=== PATIENT | female | born 1955 | race Caucasian/White ===

== ENCOUNTER 2016-09-14 14:55 | Emergency (ER) | payer OTHER ==
[~2016-09-14] VITALS: Ht 170.2 cm; Wt 60.0 kg
[~2016-09-14 14:55] MED LIST: GABA100C14 PO; GABA300C16 PO; LEVE-5 PO; MULTI PO
[2016-09-14 14:59] VITALS: Ht 170.2 cm; Wt 60.0 kg
[2016-09-14] MEDS ORDERED: KETOROLAC 15 MG INJ IM STA (19:25)
[2016-09-14] MEDS ORDERED: IBUP800T25 PO (19:26)
--- NOTE | 2016-09-14 19:29 | ERD ---
ER Documentation Chief Complaint Date/Time DATE: 09/14/16 TIME: 19:27 Chief Complaint LEFT HIP PAIN S/P FALL 3 DAYS AGO. HPI 61-year-old female who presents to the emergency room with neck pain, bilateral hip pain status post moving furniture 3 days ago. At triage it was reported to follow-up with the patient denies a fall. She describes chronic neck pain and hip pain. She states that she was lifting some heavy mattresses. She states that she is homeless. 3 days ago she felt a strain to her neck and her hips. She has been walking during this timeframe using some mild assistance. She states in the past narcotics of help for her pain. She denies any fevers or chills. No head trauma or loss of consciousness. ROS All systems reviewed and are negative except as per history of present illness. Medications Home Meds Active Scripts Ibuprofen* (Motrin*) 800 Mg Tab, 800 MG PO Q6H Y for PAIN AND OR ELEVATED TEMP, #30 TAB Prov:SLAVA MARTÍNEZ MD 09/14/16 Multivitamins* (Theragran*) 1 Tab Tab, 1 TAB PO DAILY for 30 Days, TAB Prov:MOO MCKEON 05/22/16 Levetiracetam* (Keppra*) 500 Mg Tablet, 500 MG PO BID for 30 Days, TAB Prov:MOO MCKEON 05/22/16 Gabapentin* (Gabapentin*) 100 Mg Capsule, 200 MG PO TID for 30 Days, CAP Prov:MOO MCKEON 05/22/16 Reported Medications Gabapentin* (Gabapentin*) 300 Mg Capsule, 600 MG PO TID, #180 CAP 02/05/16 Allergies Allergies: Coded Allergies: No Known Allergies (Verified Allergy, Unknown, 05/19/16) pseudoephedrine (Verified Adverse Reaction, Unknown, tachycardia--SIDE EFFECT ONLY, 05/19/16) PMhx/Soc Anesthesia Reaction: No Hx Neurological Disorder: No Hx Respiratory Disorders: Yes (bronchitis) Hx Cardiac Disorders: Yes (intermittent high bp) Hx Psychiatric Problems: No Hx Miscellaneous Medical Probl: No Hx Alcohol Use: Yes Hx Substance Use: Yes Hx Tobacco Use: Yes FmHx Family History: No diabetes Physical Exam Vitals Vital Signs Date Time Temp Pulse Resp B/P Pulse Ox O2 Delivery O2 Flow Rate FiO2 09/14/16 14:59 98.6 101 19 109/61 97 Physical Exam Airway is intact Bilateral breath sounds Strong distal pulses No obvious deficits General: Well developed, well nourished, no acute distress Head: Normocephalic, atraumatic Eyes: Pupils equally reactive, EOM intact ENT: Moist mucous membranes Neck: Supple, no lymphadenopathy, No midline tenderness, deformities, step-offs to the cervical spine, full active and passive range of motion without midline pain. Respiratory: Lungs clear bilaterally, no distress, no chest wall tenderness, no crepitus Cardiovascular: RRR, no murmurs, rubs, or gallops Abdominal: Soft, non-tender, non-distended, no peritoneal signs, pelvis is stable : Deferred MSK: No edema, no unilateral swelling, 5/5 strength, no midline tenderness deformities or step-offs to the thoracolumbar spine, normal internal and external rotation of bilateral hips without focal tenderness Neurologic: Alert and oriented, moving all extremities, normal speech, no focal weakness, no cerebellar signs Skin: No ecchymoses or bruising to the chest or abdomen Psych: Normal mood Procedures/MDM The patient's clinical exam is reassuring. Her chronic pain is likely exacerbated by heavy lifting. The patient does not meet high-risk criteria and based on NEXUS cervical spine criteria there is no indication for cervical spine imaging at this time. The patient has no evidence of septic joint. She has full active and passive range of motion of bilateral hips. The patient has been taking frequent smoking breaks in triage and has been called multiple times. The patient is homeless. I do not suspect acute fracture. The patient states that she did not fall. I offered x-ray imaging but feel that the imaging is unlikely to show fracture. The patient agrees and would like to defer x-ray imaging. The patient was provided Toradol. I will not offer narcotics for this patient. A combination of electronic medical record review, [facility] database review and patient behavior in the emergency room are concerning for drug-seeking and/or narcotic dependence behavior. In my opinion further use of IV or IM narcotics in this patient is not warranted unless clinical scenario changes. In addition , we should use caution prescribing chronic narcotic and/or benzodiazepine medications from the emergency room. A single provider should be dispensing this type of medication. The patient was informed. The patient was given food, outpatient resources and I believe the patient is safe for discharge. The patient is requesting a cane which has been provided. We discussed follow up with the patient's primary care doctor within 24 to 48 hours as needed. We also discussed return to the emergency room for worsening symptoms or worsening condition. Outpatient referral: [None required] Discharge Medications: Motrin Departure Diagnosis: Primary Impression: Myalgia Condition: Stable Patient Instructions: Myalgias Referrals: [facility] YOU HAVE RECEIVED A MEDICAL SCREENING EXAM AND THE RESULTS INDICATE THAT YOU DO NOT HAVE A CONDITION THAT REQUIRES URGENT TREATMENT IN THE EMERGENCY DEPARTMENT. FURTHER EVALUATION AND TREATMENT OF YOUR CONDITION CAN WAIT UNTIL YOU ARE SEEN IN YOUR DOCTORS OFFICE WITHIN THE NEXT 1-2 DAYS. IT IS YOUR RESPONSIBILITY TO MAKE AN APPOINTMENT FOR FOLOW-UP CARE. IF YOU HAVE A PRIMARY DOCTOR --you should call your primary doctor and schedule an appointment IF YOU DO NOT HAVE A PRIMARY DOCTOR YOU CAN CALL OUR PHYSICIAN REFERRAL HOTLINE AT IF YOU CAN NOT AFFORD TO SEE A PHYSICIAN YOU CAN CHOSE FROM THE FOLLOWING [facility] [address] [facility]. [facility] [address] [facility] [address] [facility] [address] [facility]. [facility] [address] [facility]. [facility] [address] [facility]. [facility] YOU HAVE RECEIVED A MEDICAL SCREENING EXAM AND THE RESULTS INDICATE THAT YOU DO NOT HAVE A CONDITION THAT REQUIRES URGENT TREATMENT IN THE EMERGENCY DEPARTMENT. FURTHER EVALUATION AND TREATMENT OF YOUR CONDITION CAN WAIT UNTIL YOU ARE SEEN IN YOUR DOCTORS OFFICE WITHIN THE NEXT 1-2 DAYS. IT IS YOUR RESPONSIBILITY TO MAKE AN APPOINTMENT FOR FOLOW-UP CARE. IF YOU HAVE A PRIMARY DOCTOR --you should call your primary doctor and schedule and appointment IF YOU DO NOT HAVE A PRIMARY DOCTOR YOU CAN CALL OUR PHYSICIAN REFERRAL HOTLINE AT . IF YOU CAN NOT AFFORD TO SEE A PHYSICIAN YOU CAN CHOSE FROM THE FOLLOWING [facility] INSTITUTIONS: [facility] [address] [place] [address] [facility] [address] [place] [address] [facility] + [facility] [address] [place] [address] Additional Instructions: Call your primary care doctor TOMORROW for an appointment during the next 1 WEEK.Tell the secretary office clerk that you were referred from this facility.See the doctor sooner or return here if your condition worsens before your appointment time. SLAVA MARTÍNEZ MD Sep 14, 2016 19:29
[2016-09-14 20:19] VITALS: BP 114/72; PULSE 76; RESP 16; TEMP 98.3
== END 2016-09-14 20:20 | disposition home or self-care (01) ==
LOC: E/R 14:55
DX: S19.9XXA Unspecified injury of neck, initial encounter (principal); S79.911A Unspecified injury of right hip, initial encounter; S79.912A Unspecified injury of left hip, initial encounter; X50.0XXA Overexertion from strenuous movement or load, initial encounter; Y92.9 Unspecified place or not applicable; Z87.891 Personal history of nicotine dependence
CPT/HCPCS: 96372; J1885; Z7502

== ENCOUNTER 2016-11-18 12:37 | Emergency (ER) | payer OTHER ==
[~2016-11-18] VITALS: Ht 154.9 cm; Wt 60.0 kg
[~2016-11-18 12:37] MED LIST changes: +IBUP800T25 PO
[2016-11-18 12:47] VITALS: Ht 154.9 cm; Wt 60.0 kg
[2016-11-18] MEDS ORDERED: ACETAMINOPHEN 325 MG TAB PO ONE (13:30)
--- NOTE | 2016-11-18 13:32 | RADRPT ---
PROCEDURE: CT Brain without contrast. CLINICAL INDICATION: Fall; Neurologic deficit TECHNIQUE: A CT of the brain was performed on multidetector high-resolution CT scanner utilizing a xial sections from the skull base through the vertex without contrast. One or more of the following dose reduction techniques were used: Automated exposure control, Adjustment of the mA and/or kV acc ording to patient size, and/or use of iterative reconstruction technique. DOSE: CTDI = 43 mGy and the DLP = 630 mGy-cm. COMPARISON: Head CT 05/19/2016 FINDINGS: No acute intracranial hemorrhage, significant mass effect or midline shift. The felton-white different iation is grossly preserved. Vascular calcifications. The ventricles are stable size. Mild volume loss. No significant opacification of the visualized paranasal sinuses or mastoids. IMPRESSION: No significant change since 05/19/2016 No acute intracranial findings. Mild volume loss and intracranial atherosclerosis. RPTAT: AA .Jayson Gutierrez MD, MD Date Time Electronically viewed and signed by .Jayson Gutierrez MD, on 11/18/2016 13:31 .T/
--- NOTE | 2016-11-18 13:44 | RADRPT ---
PROCEDURE: CT Cervical Spine without contrast. CLINICAL INDICATION: Fall TECHNIQUE: A CT of the cervical spine was performed on a CT scanner utilizing thin section axial images from the skull base through the thoracic inlet. Sagittal and coronal reformatted images were made. The CTDIvol is 22.2. mGy and the DLP is 494.42 mGycm. Automated exposure control, adjustme nt of the mA and/or kV according to patient size, use of iterative reconstruction technique. COMPARISON: No prior studies are available for comparison. FINDINGS: There is a normal lordosis of the cervical spine. the vertebral bodies are normal in height, densi ty, and alignment. No fracture is evident. C2-3: Intervertebral disk calcification with preservation of disk height. Small central disk protru honey measuring 2 mm in AP dimension. Severe hypertrophic left facet joint arthropathy without jhony inal or central canal stenosis. C3-4: Intervertebral disk calcification with preservation of disk height. Subtle 1 mm anterolisthes is of C3 on C4 with minimal posterior disk bulging and 2 mm central disk protrusion moderate to frank re bilateral hypertrophic facet joint arthropathy without foraminal stenosis C4-5: Intervertebral disk calcification with preservation of disk height and circumferential disk bu lging with small central disk protrusion measuring 1-2 mm in AP dimension. 1-2 mm anterolisthesis o f C4 on C5. Severe hypertrophic left facet joint arthropathy with moderate to severe left foraminal stenosis without right foraminal or central canal stenosis. < C5-6: Mild loss of disk height with intervertebral disk calcification and circumferential disk bulgi ng. Posterior annular disk calcification. Moderate to severe hypertrophic facet joint arthropathy. No significant disk bulge or protrusion is evident. There is no central canal stenosis or foramin al narrowing. C6-7: Moderate disk space narrowing and 2-3 mm anterolisthesis of C6 on C7 uncovering of posterior disk with circumferential disk bulging. No focal disk protrusion. Moderate to severe hypertrophic facet joint arthropathy. There is no central canal stenosis or foraminal narrowing. C7-T1: Moderate disk space narrowing. No significant disk bulge or protrusion is evident. There is no central canal stenosis or foraminal narrowing. No pre and paravertebral soft tissue abnormality. The lung apices are clear. 2.6 cm partially calc ified right thyroid lobe cyst. Ultrasound correlation is recommended. IMPRESSION: 1. No fracture or paraspinal soft tissue abnormality. 2. Multilevel degenerative disk and spondylitic changes as detailed above. 3. 2.6 cm right partially calcified thyroid lobe cyst. Ultrasound correlation is recommended. RPTAT:AAJJ Yolis Meza Physician Date Time Electronically viewed and signed by Yolis Meza Physician on 11/18/2016 13:44 YANI/
[2016-11-18 15:50] VITALS: BP 122/70; PULSE 86; RESP 18; TEMP 98
--- NOTE | 2016-11-18 16:42 | ERD ---
ER Documentation Chief Complaint Date/Time DATE: 11/18/16 TIME: 16:40 Chief Complaint fell, has neck pain, etoh intoxicated HPI Patient is a 61-year-old female with alcohol abuse who presents with neck pain. Please note the history and physical exam is limited secondary to the patient' s alcohol intake today. She says that she has had neck pain for the past 5 days which started after moving furniture. She has had recent falls as well. She admits to drinking 3 beers today. She has had no treatment for the pain. Upon review of old medical records patient has multiple visits to the ER for various complaints. She does not know the name of her primary doctor. ROS All systems reviewed and are negative except as per history of present illness. Medications Home Meds Active Scripts Ibuprofen* (Motrin*) 800 Mg Tab, 800 MG PO Q6H Y for PAIN AND OR ELEVATED TEMP, #30 TAB Prov:SLAVA MARTÍNEZ MD 09/14/16 Multivitamins* (Theragran*) 1 Tab Tab, 1 TAB PO DAILY for 30 Days, TAB Prov:MOO MCKEON 05/22/16 Levetiracetam* (Keppra*) 500 Mg Tablet, 500 MG PO BID for 30 Days, TAB Prov:MOO MCKEON 05/22/16 Gabapentin* (Gabapentin*) 100 Mg Capsule, 200 MG PO TID for 30 Days, CAP Prov:MOO MCKEON 05/22/16 Reported Medications Gabapentin* (Gabapentin*) 300 Mg Capsule, 600 MG PO TID, #180 CAP 02/05/16 Allergies Allergies: Coded Allergies: No Known Allergies (Verified Allergy, Unknown, 05/19/16) pseudoephedrine (Verified Adverse Reaction, Unknown, tachycardia--SIDE EFFECT ONLY, 05/19/16) PMhx/Soc Anesthesia Reaction: No Hx Neurological Disorder: No Hx Respiratory Disorders: Yes (bronchitis) Hx Cardiac Disorders: Yes (intermittent high bp) Hx Psychiatric Problems: No Hx Miscellaneous Medical Probl: No Hx Alcohol Use: Yes Hx Substance Use: Yes Hx Tobacco Use: Yes Smoking Status: Current every day smoker FmHx Family History: diabetes Physical Exam Vitals Vital Signs Date Time Temp Pulse Resp B/P Pulse Ox O2 Delivery O2 Flow Rate FiO2 11/18/16 15:50 98.0 86 18 122/70 99 Room Air 11/18/16 12:47 98.3 90 18 114/66 99 Physical Exam Const: No acute distress Head: Atraumatic Eyes: Normal Conjunctiva ENT: Normal External Ears, Nose and Mouth. Neck: Pain over the strap muscles of the right neck Resp: Clear to auscultation bilaterally Cardio: Regular rate and rhythm, no murmurs Abd: Soft, non tender, non distended. Normal bowel sounds Skin: No petechiae or rashes Back: No midline or flank tenderness Ext: No cyanosis, or edema Neur: Awake but intoxicated Results 24 hrs Current Medications Medications (Trade) Dose Ordered Sig/Jenna Route PRN Reason Start Time Stop Time Status Last Admin Dose Admin Acetaminophen (Tylenol Tab) 650 mg ONCE ONCE PO 11/18/16 13:30 11/18/16 13:31 DC 11/18/16 13:40 Procedures/MDM CT scan of the head and neck are negative for fracture or bleeding per radiology. Patient is a 61-year-old female presents with neck pain. CT scan of the head and cervical spine are negative for fracture or dislocation. At this point I believe outpatient management is appropriate. The patient was given Tylenol for pain. She was instructed not to drink alcohol to excess in the future. She can return for any worsening symptoms. I believe this most likely musculoskeletal neck pain. Departure Diagnosis: Primary Impression: Alcohol intoxication Complication of substance-induced condition: uncomplicated Qualified Code: F10.120 - Alcohol intoxication, uncomplicated Additional Impression: Neck pain Condition: Fair Patient Instructions: Alcohol Intoxication, Neck Pain, No Trauma Additional Instructions: Call your primary care doctor TOMORROW for an appointment during the next 1-2 days.See the doctor sooner or return here if your condition worsens before your appointment time. ANIL MCKENZIE MD November 18, 2016 16:42
== END 2016-11-18 15:51 | disposition home or self-care (01) ==
LOC: E/R 12:37
DX: F10.120 Alcohol abuse with intoxication, uncomplicated (principal); M54.2 Cervicalgia; F17.210 Nicotine dependence, cigarettes, uncomplicated; R93.0 Abnormal findings on diagnostic imaging of skull and head, not elsewhere classified
CPT/HCPCS: 70450; 72125; Z7502; Z7610

== ENCOUNTER 2017-01-15 01:55 | Emergency (ER) | payer OTHER ==
[~2017-01-15] VITALS: Ht 170.2 cm; Wt 59.0 kg
[2017-01-15 02:01] VITALS: Ht 170.2 cm; Wt 59.0 kg
[2017-01-15] MEDS ORDERED: CYCLOBENZAPRINE 10 MG TAB PO ONE (02:30)
[2017-01-15] MEDS ORDERED: ACETAMINOPHEN 325 MG TAB PO ONE (02:30)
--- NOTE | 2017-01-15 02:37 | ERD ---
ER Documentation Chief Complaint Date/Time DATE: 01/15/17 TIME: 02:34 Chief Complaint s/p on sidewalk, no KO, left neck pain HPI 61 yo female states she was moving bottles into the recycling machine and when it turned it caused her to fall, causing her to twist, and is complaining of headache, neck pain and right thumb pain, this occurred around 5 PM yesterday. Patient describes a diffuse headache that is mild, achy. She denies any loss of consciousness or nausea vomiting. She also reports diffuse neck pain nonradiating. She also states that she has pain in the right base of thumb pain which she sprained at the same time today. Patient states that she does not take any blood thinners. She denies any other injuries at this time. ROS All systems reviewed and are negative except as per history of present illness. Medications Home Meds Active Scripts Ibuprofen* (Motrin*) 400 Mg Tab, 400 MG PO Q6, #30 TAB Prov:EVENS DICK PA-C 01/15/17 Ibuprofen* (Motrin*) 800 Mg Tab, 800 MG PO Q6H Y for PAIN AND OR ELEVATED TEMP, #30 TAB Prov:SLAVA MARTÍNEZ MD 09/14/16 Multivitamins* (Theragran*) 1 Tab Tab, 1 TAB PO DAILY for 30 Days, TAB Prov:MOO MCKEON 05/22/16 Levetiracetam* (Keppra*) 500 Mg Tablet, 500 MG PO BID for 30 Days, TAB Prov:MOO MCKEON 05/22/16 Gabapentin* (Gabapentin*) 100 Mg Capsule, 200 MG PO TID for 30 Days, CAP Prov:MOO MCKEON 05/22/16 Reported Medications Gabapentin* (Gabapentin*) 300 Mg Capsule, 600 MG PO TID, #180 CAP 02/05/16 Allergies Allergies: Coded Allergies: No Known Allergies (Verified Allergy, Unknown, 05/19/16) pseudoephedrine (Verified Adverse Reaction, Unknown, tachycardia--SIDE EFFECT ONLY, 05/19/16) PMhx/Soc Anesthesia Reaction: No Hx Neurological Disorder: No Hx Respiratory Disorders: Yes (bronchitis) Hx Cardiac Disorders: Yes (intermittent high bp) Hx Psychiatric Problems: No Hx Miscellaneous Medical Probl: No Hx Alcohol Use: Yes Hx Substance Use: Yes Hx Tobacco Use: Yes Smoking Status: Current every day smoker Physical Exam Vitals Vital Signs Date Time Temp Pulse Resp B/P Pulse Ox O2 Delivery O2 Flow Rate FiO2 01/15/17 02:01 97.1 73 18 137/83 100 Physical Exam General: Well-developed, well-nourished. The patient appears in no acute distress. HEENT: Head is normocephalic, atraumatic. No scleral icterus. Neck: Supple. Nontender. No midline tenderness or crepitus. Lungs: Clear to auscultation. Normal air movement. Heart: Regular rate and rhythm. S1 and S2 are normal. No murmurs, gallops, or rubs. Abdomen: Soft, nontender, nondistended. Bowel sounds are normoactive. Extremities: Tender at the base of the right thumb, she has full range of motion with flexion and extension. Neurologic: Alert and oriented 3. No focal deficits. Skin: Normal turgor. No rash or lesions. Results 24 hrs Current Medications Medications (Trade) Dose Ordered Sig/Jenna Route PRN Reason Start Time Stop Time Status Last Admin Dose Admin Acetaminophen (Tylenol Tab) 650 mg ONCE ONCE PO 01/15/17 02:30 01/15/17 02:31 DC 01/15/17 02:38 Cyclobenzaprine HCl (Flexeril) 10 mg ONCE ONCE PO 01/15/17 02:30 01/15/17 02:31 DC 01/15/17 02:38 DIAGNOSTIC IMAGING REPORT Patient: TALAT AMADOR : 1955 Age: 61 Sex: F MR #: [id number] DOS: 01/15/17 0227 Ordering MD: EVENS DICK PA-C Location: E Room/Bed: PROCEDURE: XR right thumb. CLINICAL INDICATION: . Trauma. Pain.. TECHNIQUE: Three views of the right thumb are available for review. COMPARISON: None available FINDINGS: The osseous structures, articular spaces, and surrounding soft tissues of the left thumb are normal. No acute fracture or dislocation is seen. No radiopaque foreign body is identified. IMPRESSION: 1. Unremarkable right thumb x-ray series. RPTAT: HMVK .Lion Mary MD, Date Time Electronically viewed and signed by .Lion Mary MD, on 01/15/2017 02:56 .K/ CC: EVENS DICK PA-C DIAGNOSTIC IMAGING REPORT Patient: TALAT AMADOR : 1955 Age: 61 Sex: F MR #: [id number] DOS: 01/15/17 0227 Ordering MD: EVENS DICK PA-C Location: [facility] Room/Bed: PROCEDURE: CT Cervical Spine without contrast. CLINICAL INDICATION: Injury and pain. TECHNIQUE: CT scan of the cervical spine was performed on a multi-detector high-resolution CT scanner. Contiguous axial images were obtained without intravenous contrast. Coronal and sagittal reformatted images were also obtained. Images were reviewed on the PACS workstation. One or more of the following dose reduction techniques were used: - Automated exposure control. - Adjustment of the mA and/or kV according to patient size. - Use of iterative reconstruction technique. Exam CTD/vol = 22.35 mGy. Total exam DLP = 600.44 mGy-cm. COMPARISON: 11/18/2016. FINDINGS: There is no acute fracture. Cervical vertebral body heights are within normal limits. There is mild degenerative anterolisthesis of C6 on C7. The craniovertebral junction is within normal limits. At C2-C3, the disk height is within normal limits with intradiskal calcifications. There is no central canal or neural foraminal stenosis. There is mild left facet hypertrophy. At C3-C4, the disk height is within normal limits with intradiskal calcifications. There is no central canal or neural foraminal stenosis. There is moderate bilateral facet hypertrophy. At C4-C5, the disk height is within normal limits with intradiskal calcifications. There is no central canal stenosis. There is severe left facet hypertrophy with moderate left neural foraminal stenosis. At C5-C6, there is mild loss of disk height with intradiskal calcifications. There is a mild diffuse disk osteophyte complex. There is no central canal or neural foraminal stenosis. There is moderate bilateral facet hypertrophy. At C6-C7, there is mild loss of disk height and a mild 2 mm AP diameter degenerative anterolisthesis of C6 on C7. There is no central canal or neural foraminal stenosis. There is mild bilateral facet hypertrophy. At C7-T1, the disk height is within normal limits. There is no central canal or neural foraminal stenosis. There is no paraspinal mass or collection. There is a hypodense lesion within the right thyroid measuring 2.6 x 2.3 cm with small calcifications. IMPRESSION: No acute fracture identified. Mild degenerative anterolisthesis of C6 on C7. Multilevel degenerative disk and spondylitic changes. Right thyroid 2.6 cm partially calcified hypodense nodule, unchanged. .Gustavo Downs MD, Date Time Electronically viewed and signed by .Gustavo Downs MD, on 01/15/2017 03:16 .T/ CC: EVENS DICK PA-C DIAGNOSTIC IMAGING REPORT Patient: TALAT AMADOR : 1955 Age: 61 Sex: F MR #: [id number] DOS: 01/15/17 0227 Ordering MD: EVENS DICK PA-C Location: [facility] Room/Bed: PROCEDURE: CT Brain without contrast. CLINICAL INDICATION: Head trauma TECHNIQUE: Axial images from the skull base through the vertex without IV contrast. Multiplanar reformatted images were made. Images were reviewed on a PACS workstation. The CTDIvol is 45.01 mGy and the DLP is 810.25 mGycm. One or more of the following dose reduction techniques were used: automated exposure control, adjustment of the mA and/or kV according to patient size, or use of iterative reconstruction technique. COMPARISON: 11/18/2016 FINDINGS: The study is slightly limited by motion. Again seen is mild cortical atrophy with sulcal prominence but no significant appreciated chronic microvascular ischemic change. There is no evidence for acute territorial infarction or intracranial hemorrhage. No mass or midline shift is seen. No extraaxial fluid collection is seen. No definite calvarial fracture. Mild mucoperiosteal thickening of the maxillary sinuses is seen. There is degenerative change of the temporomandibular joints. IMPRESSION: No definite acute intracranial abnormality. RPTAT: HLBE Shilpa Jalloh Physician Date Time Electronically viewed and signed by Shilpa Jalloh, Physician on 01/15/2017 03 :03 LE/ CC: EVENS DICK PA-C Procedures/MDM ED course: She was given Tylenol, Flexeril for pain. Medical decision making: This 61-year-old female comes in with a fall, she complains of headache, neck pain, right thumb pain. All imaging negative today. CT head is negative for fracture or intracranial hemorrhage. Also CT cervical spine was obtained no evidence of acute fracture. Right thumb x-ray is normal. She has likely well-appearing, no signs of any altered mental status and stable for discharge. Patient's blood pressure was elevated (>120/80) but appears stable without evidence of hypertension emergency or urgency. The patient was counseled about the risks of hypertension and urged to pursue outpatient monitoring and therapy within a week with their primary care physician. Departure Diagnosis: Primary Impression: Injury of neck Additional Impression: Thumb sprain Condition: Good EVENS DICK PA-C Jan 15, 2017 02:37
--- NOTE | 2017-01-15 02:56 | RADRPT ---
PROCEDURE: XR right thumb. CLINICAL INDICATION: . Trauma. Pain.. TECHNIQUE: Three views of the right thumb are available for review. COMPARISON: None available FINDINGS: The osseous structures, articular spaces, and surrounding soft tissues of the left thumb are normal. No acute fracture or dislocation is seen. No radiopaque foreign body is identified. IMPRESSION: 1. Unremarkable right thumb x-ray series. RPTAT: HMVK .Lion Mary MD, MD Date Time Electronically viewed and signed by .Lion Mary MD, on 01/15/2017 02:56 .K/
--- NOTE | 2017-01-15 03:03 | RADRPT ---
PROCEDURE: CT Brain without contrast. CLINICAL INDICATION: Head trauma TECHNIQUE: Axial images from the skull base through the vertex without IV contrast. Multiplanar r eformatted images were made. Images were reviewed on a PACS workstation. The CTDIvol is 45.01 mGy and the DLP is 810.25 mGycm. One or more of the following dose reduction techniques were used: auto mated exposure control, adjustment of the mA and/or kV according to patient size, or use of iterativ e reconstruction technique. COMPARISON: 11/18/2016 FINDINGS: The study is slightly limited by motion. Again seen is mild cortical atrophy with sulcal prominence but no significant appreciated chronic microvascular ischemic change. There is no evidence for acu te territorial infarction or intracranial hemorrhage. No mass or midline shift is seen. No extraax ial fluid collection is seen. No definite calvarial fracture. Mild mucoperiosteal thickening of th e maxillary sinuses is seen. There is degenerative change of the temporomandibular joints. IMPRESSION: No definite acute intracranial abnormality. RPTAT: HLBE Physician Lida Date Time Electronically viewed and signed by Physician Lida on 01/15/2017 03:03 LE/
[2017-01-15] MEDS ORDERED: IBUP400T22 PO (03:12)
--- NOTE | 2017-01-15 03:16 | RADRPT ---
PROCEDURE: CT Cervical Spine without contrast. CLINICAL INDICATION: Injury and pain. TECHNIQUE: CT scan of the cervical spine was performed on a multi-detector high-resolution CT [facility]. Contiguous axial images were obtained without intravenous contrast. Coronal and sagittal ref ormatted images were also obtained. Images were reviewed on the PACS workstation. One or more of the following dose reduction techniques were used: - Automated exposure control. - Adjustment of the mA and/or kV according to patient size. - Use of iterative reconstruction technique. Exam CTD/vol = 22.35 mGy. Total exam DLP = 600.44 mGy-cm. COMPARISON: 11/18/2016. FINDINGS: There is no acute fracture. Cervical vertebral body heights are within normal limits. There is mil d degenerative anterolisthesis of C6 on C7. The craniovertebral junction is within normal limits. At C2-C3, the disk height is within normal limits with intradiskal calcifications. There is no cent ral canal or neural foraminal stenosis. There is mild left facet hypertrophy. At C3-C4, the disk height is within normal limits with intradiskal calcifications. There is no cent ral canal or neural foraminal stenosis. There is moderate bilateral facet hypertrophy. At C4-C5, the disk height is within normal limits with intradiskal calcifications. There is no cent ral canal stenosis. There is severe left facet hypertrophy with moderate left neural foraminal steno sis. At C5-C6, there is mild loss of disk height with intradiskal calcifications. There is a mild diffus e disk osteophyte complex. There is no central canal or neural foraminal stenosis. There is modera te bilateral facet hypertrophy. At C6-C7, there is mild loss of disk height and a mild 2 mm AP diameter degenerative anterolisthesis of C6 on C7. There is no central canal or neural foraminal stenosis. There is mild bilateral facet hypertrophy. At C7-T1, the disk height is within normal limits. There is no central canal or neural foraminal st enosis. There is no paraspinal mass or collection. There is a hypodense lesion within the right thyroid erika suring 2.6 x 2.3 cm with small calcifications. IMPRESSION: No acute fracture identified. Mild degenerative anterolisthesis of C6 on C7. Multilevel degenerative disk and spondylitic changes. Right thyroid 2.6 cm partially calcified hypodense nodule, unchanged. .Gustavo Downs MD, MD Date Time Electronically viewed and signed by .Gustavo Downs MD, MD on 01/15/2017 03:16 .T/
[2017-01-15 03:32] VITALS: BP 126/85; PULSE 83; RESP 16
== END 2017-01-15 03:34 | disposition home or self-care (01) ==
LOC: FTE 01:55
DX: S19.9XXA Unspecified injury of neck, initial encounter (principal); S63.601A Unspecified sprain of right thumb, initial encounter; F17.210 Nicotine dependence, cigarettes, uncomplicated; R51 Headache; W18.39XA Other fall on same level, initial encounter; Y92.9 Unspecified place or not applicable
CPT/HCPCS: 70450; 72125; 73140; Z7502; Z7610

== ENCOUNTER 2017-03-24 13:15 | Emergency (ER) | payer SELFPAY ==
[~2017-03-24] VITALS: Wt 58.0 kg
[~2017-03-24 13:15] MED LIST changes: +IBUP400T22 PO
== END 2017-03-24 13:55 | disposition left against medical advice (07) ==
LOC: E/R 13:15
DX: Z53.21 Procedure and treatment not carried out due to patient leaving prior to being seen by health care provider (principal)

== ENCOUNTER 2017-08-19 10:02 | Emergency (ER) | END 2017-08-19 13:55 | disposition left against medical advice (07) ==

== ENCOUNTER 2017-08-19 14:10 | Emergency (ER) | END 2017-08-19 21:30 | disposition left against medical advice (07) ==

== ENCOUNTER 2018-03-09 18:51 | Inpatient (IN) | END 2018-03-15 21:50 | disposition home or self-care (01) | DRG 871 ==

== ENCOUNTER 2018-08-12 08:09 | Emergency (ER) | payer OTHER ==
[~2018-08-12] VITALS: Ht 165.1 cm; Wt 53.5 kg
[~2018-08-12 08:09] MED LIST changes: +ACET325T40 PO; +CIPR500T4 PO; -GABA100C14 PO; -GABA300C16 PO; -IBUP400T22 PO; -IBUP800T25 PO; -LEVE-5 PO; +METO5TAB58 PO; -MULTI PO; +[UNRECOGNIZED DRUG - CODE] NASAL
[2018-08-12 08:14] VITALS: Ht 165.1 cm; Wt 53.5 kg
[2018-08-12] MEDS ORDERED: HYDR-4011 PO (08:58)
[2018-08-12] MEDS ORDERED: GABA300C16 PO (08:58)
[2018-08-12] MEDS ORDERED: ACET-141 PO (08:58)
[2018-08-12 11:00] VITALS: BP 142/99; PULSE 81; RESP 16
--- NOTE | 2018-08-12 11:02 | ERD ---
ER Documentation Chief Complaint Chief Complaint C/O CP, SOB SINCE 4AM WITH PAIN GOES TO LEFT ARM HPI This is a 63-year-old female with a history of hypertension who presents to the ER for evaluation of chest pain. The patient states that she has had constant chest pain for the past 3 months however it is gotten worse over the past few hours. She states that she is living [facility] homeless [facility] at this time and is having a lot of stress due to people fighting around her and due to construction that is going on at the homeless prison. She describes the pain as sharp pain worse with stress with mild radiation to the left arm. The patient states that she has been seen in the hospital in the past 3 weeks and was admitted and had a negative cardiac workup ROS All systems reviewed and are negative except as per history of present illness. Medications Home Meds Reported Medications Gabapentin* (Gabapentin*) 300 Mg Capsule, 300 MG PO TID, #90 CAP 08/12/18 Hydrocodone/Acetaminophen ([place] 5-325 Tablet) 1 Each Tablet, 1 TAB PO Q6H PRN for PAIN LEVEL 7-10, TAB 08/12/18 Acetaminophen* (Acetaminophen*) 500 MG Extra Strength Tablet, 500 MG PO Q4H PRN for PAIN AND OR ELEVATED TEMP, TAB 08/12/18 Discontinued Scripts Metoclopramide* (Reglan*) 5 Mg Tablet, 5 MG PO Q6H PRN for NAUSEA AND OR VOMITING for 10 Days, #20 TAB Prov:MARCY FUENTES MD 03/14/18 Phenylephrine Hcl* (Luis-Synephrine* Nasal) 1% - 15 Ml [place], 2 SPRAY NASAL Q4H PRN for HEADACHE for 7 Days, #1 SPRAY otc Prov:MARCY FUENTES MD 03/14/18 Acetaminophen (MAPAP) 325 Mg Tablet, 650 MG PO Q6H PRN for PAIN LEVEL 1-3 OR FEVER for 1 Day, TAB Prov:MARCY FUENTES MD 03/14/18 Ciprofloxacin Hcl* (Ciprofloxacin Hcl*) 500 Mg Tablet, 500 MG PO BID@,18 for 3 Days, #8 TAB Prov:MARCY FUENTES MD 03/14/18 Allergies Allergies: Coded Allergies: pseudoephedrine (Verified Adverse Reaction, Unknown, tachycardia--SIDE EFFECT ONLY, 2/21/19) PMhx/Soc Anesthesia Reaction: No Hx Neurological Disorder: Yes (Hx Seizure) Hx Respiratory Disorders: No (Bronchitis) Hx Cardiac Disorders: No Hx Psychiatric Problems: No Hx Miscellaneous Medical Probl: No Hx Alcohol Use: No (quit 1 wk ago) Hx Substance Use: Yes (Marijuana) Hx Tobacco Use: No (quit 1 wk ago) Physical Exam Vitals Vital Signs Date Temp Pulse Resp B/P (MAP) Pulse Ox O2 O2 Flow FiO2 Time Delivery Rate 08/12/18 98.9 106 20 162/109 98 08:14 (126) Physical Exam INITIAL VITAL SIGNS: Reviewed by me GENERAL: The patient is well developed and appropriate for usual state of health in no apparent distress HEENT: Pupils equal, round, and reactive to light. EOMI. There is no scleral icterus. NECK: C-spine is soft and supple, there is no meningismus. There is no cervical lymphadenopathy. LUNGS: Clear to auscultation bilaterally. There are no rales, wheezes or rhonchi. HEART: Regular rate and rhythm, no murmurs, clicks, rubs or gallops. ABDOMEN: Soft, non-tender, non-distended. There are bowel sounds in all four quadrants. No rebound or guarding. EXTREMITIES: There is no peripheral cyanosis or edema. No focal swelling or erythema. NEUROLOGICAL: The patient moves all four extremities with 5/5 strength. Cranial nerves II - XII are intact. Normal gait. Alert and oriented SKIN: There is no apparent rash or petechiae. HEME/LYMPHATIC: There is no evidence of excessive bruising or lymphedema. PSYCHIATRIC: The patient does not appear anxious or depressed. Result Diagram: 08/12/18 0845 08/12/18 0917 Results 24 hrs Laboratory Tests Test 08/12/18 08:45 08/12/18 09:17 White Blood Count 6.4 10^3/ul Red Blood Count 4.64 10^6/ul Hemoglobin 13.8 g/dl Hematocrit 41.9 % Mean Corpuscular Volume 90.3 fl Mean Corpuscular Hemoglobin 29.7 pg Mean Corpuscular Hemoglobin Concent 32.9 g/dl Red Cell Distribution Width 15.9 % Platelet Count 237 10^3/UL Mean Platelet Volume 11.5 fl Immature Granulocytes % 0.300 % Neutrophils % 65.4 % Lymphocytes % 26.1 % Monocytes % 5.9 % Eosinophils % 1.2 % Basophils % 1.1 % Nucleated Red Blood Cells % 0.0 /100WBC Immature Granulocytes # 0.020 10^3/ul Neutrophils # 4.2 10^3/ul Lymphocytes # 1.7 10^3/ul Monocytes # 0.4 10^3/ul Eosinophils # 0.1 10^3/ul Basophils # 0.1 10^3/ul Nucleated Red Blood Cells # 0.0 10^3/ul Sodium Level 138 mmol/L Potassium Level 3.6 mmol/L Chloride Level 101 mmol/L Carbon Dioxide Level 27 mmol/L Anion Gap 10 Blood Urea Nitrogen 10 mg/dl Creatinine 0.92 mg/dl Est Glomerular Filtrat Rate mL/min > 60 mL/min Glucose Level 89 mg/dl Calcium Level 10.1 mg/dl Troponin I < 0.012 ng/ml Procedures/MDM Chest X-ray 1V Interpreted by me: Soft Tissue: No acute abnormaliti es Bones: No acute abnormalities Mediastinum/Cardiac Silhouette/Lungs: [No acute abnormalities] EKG: Rate/Rhythm: [Normal Sinus Rhythm] QRS, ST, T-waves: [No changes consistent w/ acute ischemia] Impression: [No evidence of ischemia or arrhythmia] This is a 63-year-old female with history of hypertension who presents to the ER for evaluation of chest pain. The patient states that her chest pain has been constant for 3 months and gotten worse over the past few hours. On my exam the patient's EKG is nonischemic, she remains hemodynamically stable, afebrile, nontoxic-appearing. Her chest x-ray is clear and troponin is negative. Do feel that there is a component of stress to this patient's complaints at this time. Since being in the emergency room she states that her chest pain has improved. The patient is speaking in full sentences and is not hypoxic with no respiratory distress. The patient is stable for outpatient follow-up and will be discharged home with a prescription for Tylenol with codeine to help with chest pain. The patient was advised she can return to the ER at any moment for reevaluation and she does feel comfortable with her plan of care for discharge with close follow- up and return precautions. Differential diagnoses entertained was broad with potential high acuity. Patient has been evaluated for acute myocardial infarction, unstable angina, aortic dissection, pulmonary embolism, other intr athoracic and cardiac concerns. Ultimately the patient's evaluation is nondiagnostic. Based on the patient's lack of risk factors, as well as the patient's clinical, laboratory, and imaging data, the patient appears to be low risk for these high risk causes of chest pain. Departure Diagnosis: Primary Impression: Chest pain Additional Impression: Stress reaction Condition: Stable RUDDY RUIZ DO Aug 12, 2018 11:02
[2018-08-12] MEDS ORDERED: ACET1TAB40 PO (11:03)
[2018-08-12] MEDS ORDERED: HYDROCODONE/APAP (5/325) TAB PO ONE (11:30)
== END 2018-08-12 11:12 | disposition home or self-care (01) ==
LOC: E/R 08:09
DX: R07.9 Chest pain, unspecified (principal); I10 Essential (primary) hypertension; F43.9 Reaction to severe stress, unspecified
CPT/HCPCS: 36415; 71045; 80048; 84484; 85025; 93005; Z7502; Z7610

== ENCOUNTER 2018-11-18 14:38 | Emergency (ER) | payer SELFPAY ==
[~2018-11-18] VITALS: Ht 170.2 cm; Wt 63.6 kg
[~2018-11-18 14:38] MED LIST changes: +ACET-141 PO; +ACET1TAB40 PO; -ACET325T40 PO; -CIPR500T4 PO; +GABA300C16 PO; +HYDR-4011 PO; -METO5TAB58 PO; -[UNRECOGNIZED DRUG - CODE] NASAL
[2018-11-18 14:42] VITALS: BP 118/67; PULSE 80; RESP 18; Ht 170.2 cm; Wt 63.6 kg
[2018-11-18] MEDS ORDERED: ONDANSETRON 4 MG INJ IV STA (15:18)
[2018-11-18] MEDS ORDERED: SOD CHLORIDE 0.9% 1,000 ML IV STA (15:18)
[2018-11-18] MEDS ORDERED: DICYCLOMINE 20 MG INJ IM ONE (15:30)
--- NOTE | 2018-11-18 18:38 | ERD ---
ER Documentation Chief Complaint Chief Complaint R881 weak & dizzy x3 days, incontinent HPI This is a 63-year-old female who is homeless who presents to the emergency room complaining of feeling weak and dizzy for 3 days. She describes possible constipation nausea and vomiting and mild abdominal cramping. Patient is a somewhat poor historian. Her continues to ask for narcotic pain medications for her though she is laying comfortably. Remainder of HPI is very limited. ROS Limited given poor cooperation Medications Home Meds Discontinued Reported Medications Gabapentin* (Gabapentin*) 300 Mg Capsule, 300 MG PO TID, #90 CAP 08/12/18 Hydrocodone/Acetaminophen ([place] 5-325 Tablet) 1 Each Tablet, 1 TAB PO Q6H PRN for PAIN LEVEL 7-10, TAB 08/12/18 Acetaminophen* (Acetaminophen*) 500 MG Extra Strength Tablet, 500 MG PO Q4H PRN for PAIN AND OR ELEVATED TEMP, TAB 08/12/18 Discontinued Scripts Acetaminophen with Codeine (Acetaminophen-Cod #3 Tablet) 1 Each Tablet, 1 TAB PO Q6H PRN for PAIN, #7 TAB Prov:RUDDY RUIZ DO 08/12/18 Allergies Allergies: Coded Allergies: pseudoephedrine (Verified Adverse Reaction, Unknown, tachycardia--SIDE EFFECT ONLY, 11/18/18) PMhx/Soc Anesthesia Reaction: No Hx Neurological Disorder: Yes (Seizure) Hx Respiratory Disorders: No (Bronchitis) Hx Cardiac Disorders: No Hx Psychiatric Problems: No Hx Miscellaneous Medical Probl: No Hx Alcohol Use: No (quit 1 wk ago) Hx Substance Use: Yes (Marijuana) Hx Tobacco Use: No (quit 1 wk ago) Smoking Status: Former smoker FmHx Family History: No diabetes Physical Exam Vitals Vital Signs Date Temp Pulse Resp B/P (MAP) Pulse Ox O2 O2 Flow FiO2 Time Delivery Rate 11/18/18 98.2 80 18 118/67 96 14:42 (84) Physical Exam General: Disheveled, malodorous, no acute distress Head: Normocephalic, atraumatic. Eyes: Pupils equally reactive, EOM intact ENT: Moist mucous membranes Neck: Supple, no lymphadenopathy Respiratory: Lungs clear bilaterally, no distress Cardiovascular: RRR, no murmurs, rubs, or gallops Abdominal: Soft, non-tender, non-distended, no peritoneal signs, no tenderness to McBurney's point, negative Mcconnell sign : Deferred MSK: No edema, no unilateral swelling, 5/5 strength Neurologic: Alert and oriented, moving all extremities, normal speech, no focal weakness, no cerebellar signs Skin: No rash Psych: Normal mood Result Diagram: 11/18/18 1536 11/18/18 1536 Results 24 hrs Laboratory Tests Test 11/18/18 15:36 White Blood Count 7.3 10^3/ul Red Blood Count 3.72 10^6/ul Hemoglobin 12.1 g/dl Hematocrit 35.3 % Mean Corpuscular Volume 94.9 fl Mean Corpuscular Hemoglobin 32.5 pg Mean Corpuscular Hemoglobin Concent 34.3 g/dl Red Cell Distribution Width 13.6 % Platelet Count 176 10^3/UL Mean Platelet Volume 10.4 fl Immature Granulocytes % 0.100 % Neutrophils % 54.8 % Lymphocytes % 37.3 % Monocytes % 4.8 % Eosinophils % 1.8 % Basophils % 1.2 % Nucleated Red Blood Cells % 0.0 /100WBC Immature Granulocytes # 0.010 10^3/ul Neutrophils # 4.0 10^3/ul Lymphocytes # 2.7 10^3/ul Monocytes # 0.4 10^3/ul Eosinophils # 0.1 10^3/ul Basophils # 0.1 10^3/ul Nucleated Red Blood Cells # 0.0 10^3/ul Sodium Level 136 mmol/L Potassium Level 3.6 mmol/L Chloride Level 103 mmol/L Carbon Dioxide Level 19 mmol/L Anion Gap 14 Blood Urea Nitrogen 11 mg/dl Creatinine 0.76 mg/dl Est Glomerular Filtrat Rate mL/min > 60 mL/min Glucose Level 106 mg/dl Calcium Level 9.3 mg/dl Total Bilirubin 0.2 mg/dl Direct Bilirubin 0.00 mg/dl Indirect Bilirubin 0.2 mg/dl Aspartate Amino Transf (AST/SGOT) 52 IU/L Alanine Aminotransferase (ALT/SGPT) 15 IU/L Alkaline Phosphatase 61 IU/L Troponin I < 0.012 ng/ml Total Protein 7.3 g/dl Albumin 4.1 g/dl Globulin 3.20 g/dl Albumin/Globulin Ratio 1.28 Lipase 271 U/L Current Medications Medications Dose Sig/Jenna Start Time Status Last (Trade) Ordered Route PRN Stop Time Admin Dose Reason Admin Sodium 1,000 ml @ Q1H STAT 11/18/18 DC Chloride 1,000 mls/hr IV 15:18 11/18/18 16:17 Ondansetron 4 mg ONCE STAT 11/18/18 DC HCl (Zofran IV 15:18 Inj) 11/18/18 15:19 Dicyclomine 10 mg ONCE ONCE 11/18/18 DC HCl IM 15:30 (Bentyl) 11/18/18 15:31 Procedures/MDM EKG, MONITORS, & DIAGNOSTIC IMAGING: Patient left prior to CT imaging LAB INTERPRETATION: I reviewed the laboratory testing and it shows no evidence of acute process MEDICAL DECISION MAKING: The patient's presentation is possibly consistent with viral process. However the patient is high risk given homeless nature. The patient is asking for narcotic pain medication reasoning flags for drug-seeking behavior and malingering. Her abdominal exam is benign but given high risk criteria CT imaging would be appropriate. ER COURSE: * The patient was treated with IV fluids. Laboratory testing is reassuring. The patient however became frustrated and was not receiving narcotic pain medication. She pulled out her IV and walked out of the emergency room. * In the future there is some significant concern for drug-seeking behavior. * The patient was not a danger to herself or others. CONSULTATION: None DISPOSITION PLAN: Patient left prior to completion of work-up Departure Diagnosis: Primary Impression: Nausea and vomiting Vomiting type: unspecified Vomiting Intractability: non-intractable Qualified Codes: R11.2 - Nausea with vomiting, unspecified Additional Impressions: Generalized weakness Homelessness Dehydration, mild Malingering Drug-seeking behavior Condition: Stable SLAVA MARTÍNEZ MD November 18, 2018 18:38
== END 2018-11-18 16:20 | disposition left against medical advice (07) ==
LOC: E/R 14:38
DX: E86.0 Dehydration (principal); R11.2 Nausea with vomiting, unspecified; R53.1 Weakness; Z59.0 Homelessness; Z72.89 Other problems related to lifestyle; Z87.891 Personal history of nicotine dependence
CPT/HCPCS: 80053; 83690; 84484; 85025; J0500; J2405; J7030; 99283

== ENCOUNTER 2019-01-25 13:43 | Emergency (ER) | payer SELFPAY ==
[~2019-01-25] VITALS: Ht 170.2 cm; Wt 63.6 kg
[2019-01-25 13:47] VITALS: BP 99/65; PULSE 87; RESP 16; Ht 170.2 cm; Wt 63.6 kg
--- NOTE | 2019-01-25 13:53 | EN ---
Date/Time of Note Date/Time of Note DATE: 01/25/19 TIME: 13:52 ER Progress Note [id number]-vxuc-old female with 1 week history of body aches and fever. No fever at triage. History of acute renal failure. Further study appropriate. SAMUEL TORRES MD Jan 25, 2019 13:53
--- NOTE | 2019-01-25 14:05 | EN ---
Date/Time of Note Date/Time of Note DATE: 01/25/19 TIME: 14:04 ER Progress Note 63-year-old female eloped from the emergency room prior to my evaluation. Patient had been waiting in the emergency room for 21 minutes but walked out prior to me being able to evaluate and treat. LANETTE ENGEL PA-C Jan 25, 2019 14:05
== END 2019-01-25 15:25 | disposition left against medical advice (07) ==
LOC: FTE 13:43
DX: R50.9 Fever, unspecified (principal)
CPT/HCPCS: 99282